=== PATIENT | male | born 1985 | race American Indian/Alaskan Native ===

== ENCOUNTER 2018-08-07 13:28 | Emergency (ER) | payer OTHER ==
[2018-08-07 13:42] VITALS: BP 125/73
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
--- NOTE | 2018-08-07 14:42 | XRay Report ---
AP AND LATERAL LUMBOSACRAL SPINE: Pain. The vertebral bodies are well mineralized and normal in alignment and vertebral height with well preserved interspace distances. The visualized portions of the posterior elements are normal. IMPRESSION: Normal study.
[2018-08-07] MEDS ORDERED: TORADOL IM ONE (15:04)
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
== END 2018-08-07 15:25 | disposition home or self-care (01) ==
LOC: ED 13:28
DX: S39.012A Strain of muscle, fascia and tendon of lower back, initial encounter (principal); V87.7XXA Person injured in collision between other specified motor vehicles (traffic), initial encounter; Y93.89 Activity, other specified; Y92.488 Other paved roadways as the place of occurrence of the external cause; Y99.8 Other external cause status
CPT/HCPCS: 72100; 96372; 99283; J1885

== ENCOUNTER 2019-02-06 07:18 | Emergency (ER) | payer SELFPAY ==
[2019-02-06 07:37] VITALS: BP 113/83
[2019-02-06] MEDS ORDERED: ZOFRAN IV ONE (07:51)
[2019-02-06] MEDS ORDERED: NACL 0.9% 1000 ML 1,000 ML IV ONE (07:51)
[2019-02-06 07:53] LABS: Bacteria,Urine 1+ /HPF (Negative); Bilirubin,Urine NEG (Negative); Blood,Urine SM (Negative); Color,Urine Yellow (Yellow); Mucus,Urine 3+ /HPF; Urobilinogen,Urine < 2.0 mg/dL (<2.0)
--- NOTE | 2019-02-06 07:54 | Emergency Department Report ---
ED N/V/D HPI - General Chief complaint: Nausea/Vomiting/Diarrhea Stated complaint: VOMITING Time Seen by Provider: 02/06/19 07:45 Source: patient Mode of arrival: Ambulatory Limitations: No Limitations - History of Present Illness Initial comments: Patient is a 33-year-old male who presents the emergency room with complaints of nausea, vomiting, diarrhea began at 2 AM yesterday. He states it has been constant since yesterday. He states he is not able tolerate by mouth intake. He denies any abdominal pain, fever, melena, hematemesis, hematochezia. Patient denies any sick contacts, recent travel, recent antibiotics, recent camping, water from a different source. He denies any past medical history or allergies to medications. - Related Data Previous Rx's Medication Instructions Recorded Last Taken Type Acetaminophen/Codeine [Tylenol #3] 1 tab PO Q6H PRN #15 tab 03/12/15 Unknown Rx Cyclobenzaprine [Flexeril] 10 mg PO TID PRN #30 tablet 08/07/18 Unknown Rx Menthol/Camphor [[place] 1 applic TP QID PRN #1 tube 08/07/18 Unknown Rx Ointment] Naproxen 500 mg PO BID PRN #30 tablet 08/07/18 Unknown Rx Ondansetron [Zofran Odt] 4 mg PO Q8HR PRN #10 tab.rapdis 02/06/19 Unknown Rx Allergies Allergy/AdvReac Type Severity Reaction Status Date / Time bananas Allergy Shortness Uncoded 02/06/19 07:22 of Breath tea Allergy Shortness Uncoded 02/06/19 07:22 of Breath ED Review of Systems ROS: Stated complaint: VOMITING Other details as noted in HPI Comment: All other systems reviewed and negative ED Past Medical Hx - Past Medical History Hx Hypertension: No Hx CVA: No Hx Heart Attack/AMI: No Hx Congestive Heart Failure: No Hx Diabetes: No Hx Deep Vein Thrombosis: No Hx Pulmonary Embolism: No Hx GERD: No Hx Liver Disease: No Hx Renal Disease: No Hx Sickle Cell Disease: No Hx Arthritis: No Hx Headaches / Migraines: No Hx Seizures: No Hx Kidney Stones: No Hx Psychiatric Treatment: No Hx Asthma: No Hx COPD: No Hx Tuberculosis: No Hx Dementia: No Hx HIV: No - Surgical History Hx Coronary Stent: No Hx Open Heart Surgery: No Hx Pacemaker: No Hx Internal Defibrillator: No Hx Cholecystectomy: No Hx Appendectomy: No Hx Breast Surgery: No - Social History Smoking Status: Never Smoker Substance Use Type: None - Medications Home Medications: Home Medications Medication Instructions Recorded Confirmed Last Taken Type Acetaminophen/Codeine [Tylenol #3] 1 tab PO Q6H PRN #15 tab 03/12/15 Unknown Rx Cyclobenzaprine [Flexeril] 10 mg PO TID PRN #30 tablet 08/07/18 Unknown Rx Menthol/Camphor [[place] 1 applic TP QID PRN #1 tube 08/07/18 Unknown Rx Ointment] Naproxen 500 mg PO BID PRN #30 tablet 08/07/18 Unknown Rx Ondansetron [Zofran Odt] 4 mg PO Q8HR PRN #10 tab.rapdis 02/06/19 Unknown Rx ED Physical Exam - General Limitations: No Limitations General appearance: alert, in no apparent distress - Head Head exam: Present: atraumatic, normocephalic - Eye Eye exam: Present: normal appearance - ENT ENT exam: Present: mucous membranes dry (mildly ) - Respiratory Respiratory exam: Present: normal lung sounds bilaterally. Absent: respiratory distress, wheezes, rales, rhonchi, stridor, chest wall tenderness, accessory m uscle use, decreased breath sounds, prolonged expiratory - Cardiovascular Cardiovascular Exam: Present: regular rate, normal rhythm, normal heart sounds. Absent: systolic murmur, diastolic murmur, rubs, gallop - GI/Abdominal GI/Abdominal exam: Present: soft, normal bowel sounds. Absent: distended, tenderness, guarding, rebound, rigid - Neurological Exam Neurological exam: Present: alert, oriented X3 - Psychiatric Psychiatric exam: Present: normal affect, normal mood - Skin Skin exam: Present: warm, dry, intact ED Course Vital Signs 02/06/19 07:36 Temperature 98.5 F Pulse Rate 70 Respiratory 16 Rate Blood Pressure 113/83 O2 Sat by Pulse 97 Oximetry ED Medical Decision Making - Lab Data Result diagrams: 02/06/19 08:05 02/06/19 08:05 Lab Results 02/06/19 02/06/19 02/06/19 Range/Units 06:24 08:05 08:05 WBC 11.7 H (4.5-11.0) K/mm3 RBC 5.47 H (3.65-5.03) M/mm3 Hgb 15.9 H (11.8-15.2) gm/dl Hct 48.5 H (35.5-45.6) % MCV 89 (84-94) fl MCH 29 (28-32) pg MCHC 33 (32-34) % RDW 14.4 (13.2-15.2) % Plt Count 231 (140-440) K/mm3 Lymph % (Auto) 23.7 (13.4-35.0) % [place] % (Auto) 8.7 H (0.0-7.3) % Eos % (Auto) 0.0 (0.0-4.3) % Baso % (Auto) 0.5 (0.0-1.8) % Lymph # 2.8 (1.2-5.4) K/mm3 [place] # 1.0 H (0.0-0.8) K/mm3 Eos # 0.0 (0.0-0.4) K/mm3 Baso # 0.1 (0.0-0.1) K/mm3 Seg Neutrophils % 67.1 (40.0-70.0) % Seg Neutrophils # 7.8 H (1.8-7.7) K/mm3 Sodium 142 (137-145) mmol/L Potassium 3.7 (3.6-5.0) mmol/L Chloride 103.4 (98-107) mmol/L Carbon Dioxide 23 (22-30) mmol/L Anion Gap 19 mmol/L BUN 16 (9-20) mg/dL Creatinine 0.9 (0.8-1.5) mg/dL Estimated GFR > 60 ml/min BUN/Creatinine Ratio 18 % Glucose 103 H (75-100) mg/dL Calcium 9.5 (8.4-10.2) mg/dL Urine Color Yellow (Yellow) Urine Turbidity Slightly-cloudy (Clear) Urine pH 5.0 (5.0-7.0) Ur Specific [place] 1.034 H (1.003-1.030) Urine Protein 30 mg/dl (Negative) mg/dL Urine Glucose (UA) Neg (Negative) mg/dL Urine Ketones Tr (Negative) mg/dL Urine Blood Sm (Negative) Urine Nitrite Neg (Negative) Urine Bilirubin Neg (Negative) Urine Urobilinogen < 2.0 (<2.0) mg/dL Ur Leukocyte Esterase Tr (Negative) Urine WBC (Auto) 6.0 (0.0-6.0) /HPF Urine RBC (Auto) 6.0 (0.0-6.0) /HPF U Epithel Cells (Auto) 2.0 (0-13.0) /HPF Urine Bacteria (Auto) 1+ (Negative) /HPF Urine Mucus 3+ /HPF - Medical Decision Making Patient is a 33-year-old male who presents the emergency room with complaints of nausea, vomiting, diarrhea began at 2 AM yesterday. He states it has been constant since yesterday. He states he is not able tolerate by mouth intake. He denies any abdominal pain, fever, melena, hematemesis, hematochezia. Patient d enies any sick contacts, recent travel, recent antibiotics, recent camping, water from a different source. He denies any past medical history or allergies to medications. VSS. labs are stable. UA without evidence of UTI. no abd tenderness on exam. pt given 1L of NS and zofran. pt able to tolerate PO intake with no difficulty while in the ED. pt given prescription for zofran. advised to please take medication as prescribed as needed. Continue drinking plenty of fluids. eat a bland diet over the next few days. follow up with a primary care doctor in the next 2-3 days. Return to the emergency room for any new or worsening symptoms or symptoms aren't improving. Critical care attestation.: If time is entered above; I have spent that time in minutes in the direct care of this critically ill patient, excluding procedure time. ED Disposition Clinical Impression: Nausea vomiting and diarrhea Disposition: DC-01 TO HOME OR SELFCARE Is pt being admited?: No Does the pt Need Aspirin: No Condition: Stable Instructions: Acute Nausea and Vomiting (ED) Additional Instructions: Please take medication as prescribed as needed. Continue drinking plenty of fluids. eat a bland diet over the next few days. follow up with a primary care doctor in the next 2-3 days. Return to the emergency room for any new or worsening symptoms or symptoms aren't improving. Prescriptions: Ondansetron [Zofran Odt] 4 mg PO Q8HR PRN #10 tab.rapdis PRN Reason: Nausea And Vomiting Referrals: [facility] [Provider Group] - 2-3 Days Forms: Work/School Release Form(ED) Time of Disposition: 09:15 Print Language: LITHUANIAN
[2019-02-06 08:48] LABS: BUN/Creatinine Ratio 18; Blood Urea Nitrogen 16 mg/dL (9-20); Calcium 9.5 mg/dL (8.4-10.2); Hemolysis Index 8
[2019-02-06 08:49] LABS: Basophils # (Auto) 0.1 K/mm3 (0.0-0.1); Basophils % (Auto) 0.5 % (0.0-1.8); Hematocrit 48.5 % (35.5-45.6); Hemoglobin 15.9 gm/dl (11.8-15.2); Lymphocytes # (Auto) 2.8 K/mm3 (1.2-5.4); Lymphocytes % (Auto) 23.7 % (13.4-35.0); Mean Corpuscular HGB Conc 33 % (32-34); Mean Corpuscular Volume 89 fl (84-94); Monocytes % (Auto) 8.7 % (0.0-7.3); Platelet Count 231 K/mm3 (140-440); Red Blood Count 5.47 M/mm3 (3.65-5.03); Red Cell Distribution Width 14.4 % (13.2-15.2)
== END 2019-02-06 09:33 | disposition home or self-care (01) ==
LOC: ED 07:18
DX: R11.2 Nausea with vomiting, unspecified (principal); R19.7 Diarrhea, unspecified
CPT/HCPCS: 36415; 80048; 81001; 85025; 96361; 96374; 99283; J2405; J7030

== ENCOUNTER 2019-08-25 10:40 | Emergency (ER) | payer OTHER ==
--- NOTE | 2019-08-25 11:46 | XRay Report ---
CHEST 2 VIEWS INDICATION: SOB, fever. COMPARISON: None. FINDINGS: Support devices: None. Heart: Within normal limits. Pulmonary vasculature: Lungs/pleura: A very subtle focal opacity in the right lung base on the frontal view. The lungs are o therwise clear. No pleural effusion. No mass or lymphadenopathy. No pneumothorax. Additional findings: None. IMPRESSION: 1. A possible early pneumonia involving the right lung base. Signer Name: Gio Arce MD Signed: 08/25/2019 11:42 AM Workstation Name: [id number]
[2019-08-25] MEDS ORDERED: AMOXICILLIN 500 MG CAP PO ONE (14:30)
[2019-08-25] MEDS ORDERED: AZITHROMYCIN 250 MG TAB PO ONE (14:31)
[2019-08-25] MEDS ORDERED: SODIUM CHLORIDE 0.9% 1000 ML 1,000 ML IV ONE (14:37)
[2019-08-25] MEDS ORDERED: cefTRIAXone/NS 1 GM/50 ML 1 GM/50 ML BAG IV ONE (14:38)
--- NOTE | 2019-08-25 14:43 | Emergency Department Report ---
ED General Adult HPI - General Chief complaint: Nausea/Vomiting/Diarrhea Stated complaint: SWEATING/VOMITING Time Seen by Provider: 08/25/19 14:26 Source: patient Mode of arrival: Ambulatory Limitations: No Limitations - History of Present Illness Initial comments: 34-year-old -[place] male presents to the emergency room complaining of body aches nausea vomiting since Friday mild cough and positive covid-19 exposure. Patient complains of hot and cold, abdominal pain only with vomiting. Denies any diarrhea. Patient does admit to a cough but no shortness of breath. Patient has no past medical history currently takes no medications on a daily basis and has no known drug allergies but is allergic to bananas and tea. Onset/Timin -: days(s) Consistency: constant Improves with: none Worsens with: none Associated Symptoms: fever/chills, nausea/vomiting Treatments Prior to Arrival: none - Related Data Previous Rx's Medication Instructions Recorded Last Taken Type Acetaminophen/Codeine [Tylenol #3] 1 tab PO Q6H PRN #15 tab 03/12/15 Unknown Rx Cyclobenzaprine [Flexeril] 10 mg PO TID PRN #30 tablet 08/07/18 Unknown Rx Menthol/Camphor [[place] 1 applic TP QID PRN #1 tube 08/07/18 Unknown Rx Ointment] Naproxen 500 mg PO BID PRN #30 tablet 08/07/18 Unknown Rx Ondansetron [Zofran Odt] 4 mg PO Q8HR PRN #10 tab.rapdis 02/06/19 Unknown Rx Azithromycin [Zithromax TAB] 250 mg PO QDAY #6 tablet 08/25/19 Unknown Rx Allergies Allergy/AdvReac Type Severity Reaction Status Date / Time bananas Allergy Shortness Uncoded 02/06/19 07:22 of Breath tea Allergy Shortness Uncoded 02/06/19 07:22 of Breath ED Review of Systems ROS: Stated complaint: SWEATING/VOMITING Other details as noted in HPI Comment: All other systems reviewed and negative ED Past Medical Hx - Past Medical History Previous Medical History?: No Hx Hypertension: No Hx CVA: No Hx Heart Attack/AMI: No Hx Congestive Heart Failure: No Hx Diabetes: No Hx Deep Vein Thrombosis: No Hx Pulmonary Embolism: No Hx GERD: No Hx Liver Disease: No Hx Renal Disease: No Hx Sickle Cell Disease: No Hx Arthritis: No Hx Headaches / Migraines: No Hx Seizures: No Hx Kidney Stones: No Hx Psychiatric Treatment: No Hx Asthma: No Hx COPD: No Hx Tuberculosis: No Hx Dementia: No Hx HIV: No - Surgical History Past Surgical History?: No Hx Coronary Stent: No Hx Open Heart Surgery: No Hx Pacemaker: No Hx Internal Defibrillator: No Hx Cholecystectomy: No Hx Appendectomy: No Hx Breast Surgery: No - Social History Smoking Status: Never Smoker - Medications Home Medications: Home Medications Medication Instructions Recorded Confirmed Last Taken Type Acetaminophen/Codeine [Tylenol #3] 1 tab PO Q6H PRN #15 tab 03/12/15 Unknown Rx Cyclobenzaprine [Flexeril] 10 mg PO TID PRN #30 tablet 08/07/18 Unknown Rx Menthol/Camphor [[employer] 1 applic TP QID PRN #1 tube 08/07/18 Unknown Rx Ointment] Naproxen 500 mg PO BID PRN #30 tablet 08/07/18 Unknown Rx Ondansetron [Zofran Odt] 4 mg PO Q8HR PRN #10 tab.rapdis 02/06/19 Unknown Rx Azithromycin [Zithromax TAB] 250 mg PO QDAY #6 tablet 08/25/19 Unknown Rx ED Physical Exam - General Limitations: No Limitations General appearance: alert, other (feeling uncomfort) - Head Head exam: Present: atraumatic, normocephalic - Eye Eye exam: Present: normal appearance - ENT ENT exam: Present: mucous membranes moist - Neck Neck exam: Present: normal inspection, full ROM - Respiratory Respiratory exam: Present: normal lung sounds bilaterally. Absent: respiratory distress - Cardiovascular Cardiovascular Exam: Present: regular rate, normal rhythm. Absent: systolic murmur, diastolic murmur, rubs, gallop - GI/Abdominal GI/Abdominal exam: Present: soft, normal bowel sounds - Extremities Exam Extremities exam: Present: normal inspection - Back Exam Back exam: Present: normal inspection - Neurological Exam Neurological exam: Present: alert, oriented X3 - Psychiatric Psychiatric exam: Present: normal affect, normal mood - Skin Skin exam: Present: warm, dry, intact, normal color. Absent: rash ED Course Vital Signs 08/25/19 10:48 Temperature 97.6 F Pulse Rate 69 Respiratory 18 Rate Blood Pressure 137/86 O2 Sat by Pulse 100 Oximetry ED Medical Decision Making - Lab Data Result diagrams: 08/25/19 15:12 08/25/19 15:12 - Radiology Data Radiology results: report reviewed Patient: ARASELI MESSINA MR# : [id number] : 1985 Acct:[id number] Age/Sex: 34 / M ADM Date: 08/25/19 Loc: ED Attending Dr: Ordering Physician: MOE JAMES MD Date of Service: 08/25/19 Procedure(s): XR chest routine 2V Accession Number(s): [id number] cc: ED MD ERIKA Fluoro Time In Minutes: CHEST 2 VIEWS INDICATION: SOB, fever. COMPARISON: None. FINDINGS: Support devices: None. Heart: Within normal limits. Pulmonary vasculature: Lungs/pleura: A very subtle focal opacity in the right lung base on the frontal view. The lungs are otherwise clear. No pleural effusion. No mass or lymphadenopathy. No pneumotho rax. Additional findings: None. IMPRESSION: 1. A possible early pneumonia involving the right lung base. Signer Name: Kylee Pennington MD Signed: 08/25/2019 11:42 AM Workstation Name: [id number] Transcribed By: REF Dictated By: KYLEE PENNINGTON MD Electronically Authenticated By: KYLEE PENNINGTON MD Signed Date/Time: 08/25/19 1142 DD/ 1139 TD/TT: - Medical Decision Making 34-year-old -[place] male presents to the emergency room complaining of body aches nausea vomiting since Friday mild cough and positive covid-19 expo sure. Patient complains of hot and cold, abdominal pain only with vomiting. Denies any diarrhea. Patient does admit to a cough but no shortness of breath. Patient has no past medical history currently takes no medications on a daily basis and has no known drug allergies but is allergic to bananas and tea. Chest x-ray shows early signs of pneumonia in the right lower lobe. Patient was given IV fluids with Reglan and azithromycin Rocephin. COVID-19 Survey form filled out with registration to scan. Patient be discharged home on a azithromycin. Quarantine for 14 days. Critical care attestation.: If time is entered above; I have spent that time in minutes in the direct care of this critically ill patient, excluding procedure time. ED Disposition Clinical Impression: Pneumonia Disposition: DC-01 TO HOME OR SELFCARE Is pt being admited?: No Does the pt Need Aspirin: No Condition: Stable Instructions: Bacterial Pneumonia (ED), Community-acquired Pneumonia (ED) Additional Instructions: Chest x-ray shows you have a right lower lung pneumonia. Please complete antibiotics as prescribed. Follow-up with your primary care provider. Return back to the emergency room with any worsening shortness of breath chest pain or worsening cough. You are being placed on a 14-day quarantine. That means that you do not leave out the house for the next 14 days stay away from family members and others doing your 14-day quarantine. Prescriptions: Azithromycin [Zithromax TAB] 250 mg PO QDAY #6 tablet Referrals: PRIMARY CAREMD [Primary Care Provider] - 3-5 Days [facility] [Provider Group] - 3-5 Days Forms: Work/School Release Form(ED)
[2019-08-25] MEDS ORDERED: METOCLOPRAMIDE 10 MG TAB PO ONE (14:45)
[2019-08-25] MEDS ORDERED: AZITHROMYCIN 500 MG in SODIUM CHLORIDE 0.9% 250ML 250 ML IV ONE (15:00)
[2019-08-25 15:33] LABS: Basophils % (Auto) 0.5 % (0.0-1.8); Hematocrit 50.6 % (35.5-45.6); Hemoglobin 16.9 gm/dl (11.8-15.2); Lymphocytes % (Auto) 10.1 % (13.4-35.0); Mean Corpuscular HGB Conc 33 % (32-34); Mean Corpuscular Volume 88 fl (84-94); Monocytes # (Auto) 0.5 K/mm3 (0.0-0.8); Monocytes % (Auto) 4.9 % (0.0-7.3); Platelet Count 242 K/mm3 (140-440); Red Blood Count 5.72 M/mm3 (3.65-5.03); Red Cell Distribution Width 13.9 % (13.2-15.2)
[2019-08-25 16:21] LABS: Albumin 4.2 g/dL (3.9-5); BUN/Creatinine Ratio 13; Blood Urea Nitrogen 13 mg/dL (9-20); Calcium 9.6 mg/dL (8.4-10.2); Hemolysis Index 117
[2019-08-25 16:31] LABS: Alanine Aminotransferase 30 units/L (7-56)
[2019-08-25 18:02] VITALS: BP 124/69
== END 2019-08-25 17:59 | disposition home or self-care (01) ==
LOC: ED 10:40
DX: J18.9 Pneumonia, unspecified organism (principal)
CPT/HCPCS: 36415; 71046; 80053; 85025; 96365; 96367; 99284; J0456; J0696; J7030; J7050

== ENCOUNTER 2019-11-26 13:09 | Emergency (ER) | payer OTHER ==
--- NOTE | 2019-11-26 14:39 | Event Note ---
ED Screening Note Date of service: 11/26/19 Time: 14:37 ED Screening Note: Patient presents with complaints of nausea and vomiting x 5 days He denies any abdominal pain, fever, chills, sweats, chest pain, shortness of breath He does admit to decreased smell and taste Patient also denies any hematemesis/coffee-ground emesis He states that he had similar symptoms when he had pneumonia in the past Patient also denies any use of marijuana PE: Patient does appear fatigued, vitals are normal This initial assessment/diagnostic orders/clinical plan/treatment(s) is/are subject to change based on patients health status, clinical progression and re- assessment by fellow clinical providers in the ED. Further treatment and workup at subsequent clinical providers discretion. Patient/guardian urged not to elope from the ED as their condition may be serious if not clinically assessed and managed. Initial orders include: Labs Chest x-ray
[2019-11-26 14:54] LABS: Basophils % (Auto) 0.3 % (0.0-1.8); Eosinophils % (Auto) 0.1 % (0.0-4.3); Hematocrit 48.6 % (35.5-45.6); Lymphocytes # (Auto) 2.3 K/mm3 (1.2-5.4); Lymphocytes % (Auto) 20.4 % (13.4-35.0); Mean Corpuscular HGB Conc 33 % (32-34); Mean Corpuscular Volume 89 fl (84-94); Monocytes # (Auto) 1.1 K/mm3 (0.0-0.8); Monocytes % (Auto) 9.7 % (0.0-7.3); Platelet Count 253 K/mm3 (140-440); Red Blood Count 5.45 M/mm3 (3.65-5.03); Red Cell Distribution Width 14.2 % (13.2-15.2)
--- NOTE | 2019-11-26 15:00 | XRay Report ---
CHEST 2 VIEWS INDICATION / CLINICAL INFORMATION: cough. COMPARISON: 08/25/2019 FINDINGS: SUPPORT DEVICES: None. HEART / MEDIASTINUM: No significant abnormality. LUNGS / PLEURA: No significant pulmonary or pleural abnormality. No pneumothorax. ADDITIONAL FINDINGS: No significant additional findings. IMPRESSION: 1. No acute findings. Signer Name: William Napoles MD Signed: 11/26/2019 2:56 PM Workstation Name: [id number]
[2019-11-26 15:21] LABS: Alanine Aminotransferase 16 units/L (7-56); Albumin 4.4 g/dL (3.9-5); BUN/Creatinine Ratio 15; Blood Urea Nitrogen 15 mg/dL (9-20); Calcium 9.7 mg/dL (8.4-10.2); Hemolysis Index 9
[2019-11-26] MEDS ORDERED: ONDANSETRON 4 MG ODT TAB PO ONE (15:53)
--- NOTE | 2019-11-26 16:06 | Emergency Department Report ---
Vomiting/Diarrhea - HPI Chief Complaint: Abdominal Pain Stated Complaint: CANT KEEP NOTHING DOWN Time Seen by Provider: 11/26/19 14:36 Severity: mild Nausea/Vomiting Severity: Mild Diarrhea Severity: Mild Pain Severity: None Symptoms: Yes Watery Diarrhea, Yes Able to Tolerate Fluids, No Bloody diarrhea, No Fever, No Recent Unusual Foods, No Recent Untreated Water, No Recent use of Antibiotics, No Family w/ Similar Symptoms, No Contacts w/ Similar Symptoms, No Rash, No Hematuria, No Recent URI Symptoms Other History: This is a 34-year-old male presents the ED complaining of nausea vomiting diarrhea for the past week. Patient states that nausea resided but returned back today ED Review of Systems ROS: Stated complaint: CANT KEEP NOTHING DOWN Other details as noted in HPI Comment: All other systems reviewed and negative ED Past Medical Hx - Past Medical History Previous Medical History?: No Hx Hypertension: No Hx CVA: No Hx Heart Attack/AMI: No Hx Congestive Heart Failure: No Hx Diabetes: No Hx Deep Vein Thrombosis: No Hx Pulmonary Embolism: No Hx GERD: No Hx Liver Disease: No Hx Renal Disease: No Hx Sickle Cell Disease: No Hx Arthritis: No Hx Headaches / Migraines: No Hx Seizures: No Hx Kidney Stones: No Hx Psychiatric Treatment: No Hx Asthma: No Hx COPD: No Hx Tuberculosis: No Hx Dementia: No Hx HIV: No - Surgical History Past Surgical History?: No Hx Coronary Stent: No Hx Open Heart Surgery: No Hx Pacemaker: No Hx Internal Defibrillator: No Hx Cholecystectomy: No Hx Appendectomy: No Hx Breast Surgery: No - Social History Smoking Status: Never Smoker Substance Use Type: None - Medications Home Medications: Home Medications Medication Instructions Recorded Confirmed Last Taken Type Acetaminophen/Codeine [Tylenol #3] 1 tab PO Q6H PRN #15 tab 03/12/15 Unknown Rx Cyclobenzaprine [Flexeril] 10 mg PO TID PRN #30 tablet 08/07/18 Unknown Rx Menthol/Camphor [[place] 1 applic TP QID PRN #1 tube 08/07/18 Unknown Rx Ointment] Naproxen 500 mg PO BID PRN #30 tablet 08/07/18 Unknown Rx Azithromycin [Zithromax TAB] 250 mg PO QDAY #6 tablet 08/25/19 Unknown Rx Ondansetron [Zofran ODT TAB] 4 mg PO Q8HR PRN #10 tab.rapdis 11/26/19 Unknown Rx Vomiting Diarrhea Exam - Exam General: Vital signs noted. No distress. Alert and acting appropriately. HEENT: Yes Moist Mucous Membranes, No Pharyngeal Erythema, No Pharyngeal Exudates, No Rhinorrhea, No Conjuctival Injection, No Frontal Tenderness, No Maxillary Tenderness Neck: No Adenopathy, No Rigidity Lungs: Yes Clear Lung Sounds, Yes Good Air Exchange, No Wheezes, No Stridor, No Cough, No Nasal Flaring, No Retractions, No Use of Accessory Muscles Heart exam: Regular: Yes, Murmur: No, Tachycardia: No Abdomen: Tenderness: No, Peritoneal Signs: No, Distention: No, Hyperactive Bowel sounds: No Skin exam: Rash: No, Edema: No, Normal turgor: Yes Neurologic: Alert and oriented, no deficits. Musculoskeletal: Unremarkable. ED Course Vital Signs 11/26/19 14:35 Temperature 99.2 F Pulse Rate 56 L Respiratory 18 Rate Blood Pressure 123/72 O2 Sat by Pulse 97 Oximetry ED Medical Decision Making - Lab Data Result diagrams: 11/26/19 14:42 11/26/19 14:42 Laboratory Last Values WBC 11.5 K/mm3 (4.5-11.0) H 11/26/19 14:42 RBC 5.45 M/mm3 (3.65-5.03) H 11/26/19 14:42 Hgb 16.0 gm/dl (11.8-15.2) H 11/26/19 14:42 Hct 48.6 % (35.5-45.6) H 11/26/19 14:42 MCV 89 fl (84-94) 11/26/19 14:42 MCH 29 pg (28-32) 11/26/19 14:42 MCHC 33 % (32-34) 11/26/19 14:42 RDW 14.2 % (13.2-15.2) 11/26/19 14:42 Plt Count 253 K/mm3 (140-440) 11/26/19 14:42 Lymph % (Auto) 20.4 % (13.4-35.0) 11/26/19 14:42 [place] % (Auto) 9.7 % (0.0-7.3) H 11/26/19 14:42 Eos % (Auto) 0.1 % (0.0-4.3) 11/26/19 14:42 Baso % (Auto) 0.3 % (0.0-1.8) 11/26/19 14:42 Lymph # 2.3 K/mm3 (1.2-5.4) 11/26/19 14:42 [place] # 1.1 K/mm3 (0.0-0.8) H 11/26/19 14:42 Eos # 0.0 K/mm3 (0.0-0.4) 11/26/19 14:42 Baso # 0.0 K/mm3 (0.0-0.1) 11/26/19 14:42 Seg Neutrophils % 69.5 % (40.0-70.0) 11/26/19 14:42 Seg Neutrophils # 8.0 K/mm3 (1.8-7.7) H 11/26/19 14:42 Sodium 141 mmol/L (137-145) 11/26/19 14:42 Potassium 3.8 mmol/L (3.6-5.0) 11/26/19 14:42 Chloride 104.4 mmol/L (98-107) 11/26/19 14:42 Carbon Dioxide 22 mmol/L (22-30) 11/26/19 14:42 Anion Gap 18 mmol/L 11/26/19 14:42 BUN 15 mg/dL (9-20) 11/26/19 14:42 Creatinine 1.0 mg/dL (0.8-1.5) 11/26/19 14:42 Estimated GFR > 60 ml/min 11/26/19 14:42 BUN/Creatinine Ratio 15 % 11/26/19 14:42 Glucose 95 mg/dL (75-100) 11/26/19 14:42 Calcium 9.7 mg/dL (8.4-10.2) 11/26/19 14:42 Total Bilirubin 0.60 mg/dL (0.1-1.2) 11/26/19 14:42 AST 18 units/L (5-40) 11/26/19 14:42 ALT 16 units/L (7-56) 11/26/19 14:42 Alkaline Phosphatase 69 units/L (35-129) 11/26/19 14:42 Total Protein 7.7 g/dL (6.3-8.2) 11/26/19 14:42 Albumin 4.4 g/dL (3.9-5) 11/26/19 14:42 Albumin/Globulin Ratio 1.3 % 11/26/19 14:42 Lipase 10 units/L (13-60) L 11/26/19 14:42 - Medical Decision Making 34-year-old male presents with nausea and vomiting most likely secondary to gastroenteritis Were no vomiting in the ED patient received a Zofran in the ED. All labs are within normal limits, patient had a nontender abdomen. Vital signs are normal patient is in no acute distress Discussed with patient to follow-up with primary care physician. Critical care attestation.: If time is entered above; I have spent that time in minutes in the direct care of this critically ill patient, excluding procedure time. ED Disposition Clinical Impression: Gastroenteritis Disposition: DC-01 TO HOME OR SELFCARE Is pt being admited?: No Does the pt Need Aspirin: No Condition: Stable Instructions: Gastroenteritis (ED), Acute Nausea and Vomiting (ED) Additional Instructions: Make sure to follow up with the primary care physician as discussed. Take all your medications as you've been prescribed. If you have any worsening symptoms or develop new symptoms please return to ED immediately. Prescriptions: Ondansetron [Zofran ODT TAB] 4 mg PO Q8HR PRN #10 tab.rapdis PRN Reason: Nausea And Vomiting Referrals: PRIMARY CARE,MD [Primary Care Provider] - 3-5 Days [facility] [Provider Group] - 3-[address] [facility] [place] [Outside] - 3-5 Days [facility] [Outside] - 3-5 Days Forms: Work/School Release Form(ED) Time of Disposition: 16:16
[2019-11-26 17:00] VITALS: BP 136/79
== END 2019-11-26 16:57 | disposition home or self-care (01) ==
LOC: ED 13:09
DX: K52.9 Noninfective gastroenteritis and colitis, unspecified (principal); Z79.899 Other long term (current) drug therapy
CPT/HCPCS: 36415; 71046; 80053; 83690; 85025; 99283; Q0162